=== PATIENT | female | born 1930 | race Caucasian/White ===

== ENCOUNTER 2017-01-13 07:48 | Day surgery (SDC) | payer MEDICARE, BC ==
[~2017-01-13 07:48] MED LIST: PROPOFOL 500 MG/50 ML EMU IV ONE
[2017-01-13 10:52] VITALS: TEMP 97.8
[2017-01-13 11:20] VITALS: BP 171/84; PULSE 78; RESP 20; O2SAT 97
== END 2017-01-13 11:29 | disposition home or self-care (01) | DRG 392 ==
LOC: SURG 07:48
PROVIDERS: ATTEND Surgery
DX: R19.4 Change in bowel habit (principal); K57.30 Diverticulosis of large intestine without perforation or abscess without bleeding; R19.7 Diarrhea, unspecified
CPT/HCPCS: J2704

== ENCOUNTER 2018-04-25 15:29 | Emergency (ER) | payer MEDICARE, BC ==
[2018-04-25 15:42] VITALS: TEMP 98.2
[2018-04-25] MEDS ORDERED: SODIUM CHLORIDE 0.9% 1000 ML SOL IV SCH (16:45)
[2018-04-25 17:12] LABS: BASOPHILS % (AUTO) 0 % (0-3); EOSINOPHILS % (AUTO) 2 % (0-9); HEMATOCRIT 37 % (35-47); HEMOGLOBIN 12.1 gm/dl (12.0-15.5); MEAN CORPUSCULAR HEMOGLOBIN 28.6 pg (27.0-32.0); MEAN CORPUSCULAR HGB CONC 32.7 gm/dl (32.0-36.0); MEAN CORPUSCULAR VOLUME 87 fL (81-99); MONOCYTES % (AUTO) 8.2 % (0-12); NEUTROPHILS % (AUTO) 70.9 % (37-80)
[2018-04-25 17:33] LABS: ALBUMIN 3.3 gm/dl (3.4-5.0); ALKALINE PHOSPHATASE 82 IU/L (46-116); ALT 16 IU/L (14-63); AST 14 IU/L (15-37); BILIRUBIN,TOTAL 0.9 mg/dl (0.2-1.0); BLOOD UREA NITROGEN 22 mg/dl (7-18); CALCIUM 8.8 mg/dl (8.5-10.1); CARBON DIOXIDE 28.6 mEq/L (21-32); CHLORIDE 102 mMol/L (98-107); CREATININE 1.41 mg/dl (0.60-1.00); GLUCOSE 117 mg/dl (74-106); POTASSIUM 4.1 mMol/L (3.5-5.1); SODIUM 138 mMol/L (136-145); TOTAL PROTEIN 6.8 gm/dl (6.4-8.2); TROP I < 0.017 ng/ml (0.000-0.056)
[2018-04-25 19:37] VITALS: PULSE 63; RESP 20; O2SAT 95
[2018-04-25 19:38] VITALS: BP 147/70
== END 2018-04-25 19:27 | disposition home or self-care (01) | DRG 153 ==
LOC: ED 15:29
DX: J06.9 Acute upper respiratory infection, unspecified (principal); E86.0 Dehydration
CPT/HCPCS: 36415; 70450; 71045; 80053; 84484; 85025; 93005; 96365; 99283; 99284

== ENCOUNTER 2018-04-28 18:55 | Emergency (ER) | payer MEDICARE, BC ==
[2018-04-28 22:17] VITALS: BP 158/84; PULSE 72; RESP 20; TEMP 96.6; O2SAT 96
== END 2018-04-28 22:36 | disposition home or self-care (01) | DRG 392 ==
LOC: ED 18:55
DX: K59.00 Constipation, unspecified (principal)
CPT/HCPCS: 99282; 99283

== ENCOUNTER 2018-05-11 21:03 | Emergency (ER) | payer MEDICARE, BC ==
[2018-05-11 21:42] LABS: BASOPHILS % (AUTO) 1 % (0-3); EOSINOPHILS % (AUTO) 5 % (0-9); HEMATOCRIT 35 % (35-47); HEMOGLOBIN 11.6 gm/dl (12.0-15.5); LYMPHOCYTES % (AUTO) 21.1 % (10-50); MEAN CORPUSCULAR HEMOGLOBIN 28.6 pg (27.0-32.0); MEAN CORPUSCULAR VOLUME 87 fL (81-99); MONOCYTES % (AUTO) 11.3 % (0-12); NEUTROPHILS % (AUTO) 60.9 % (37-80)
[2018-05-11 21:49] LABS: CALCIUM 8.6 mg/dl (8.5-10.1); CARBON DIOXIDE 29.8 mEq/L (21-32); CREATININE 1.19 mg/dl (0.60-1.00); POTASSIUM 3.3 mMol/L (3.5-5.1)
[2018-05-12 01:10] VITALS: RESP 18
[2018-05-12 01:12] VITALS: TEMP 97.9
[2018-05-12 01:16] VITALS: BP 162/84; PULSE 76; O2SAT 96
== END 2018-05-11 23:55 | disposition home or self-care (01) | DRG 392 ==
LOC: ED 21:03
DX: K59.00 Constipation, unspecified (principal)
CPT/HCPCS: 36415; 74019; 80048; 85025; 99283; 99284

== ENCOUNTER 2018-05-14 11:17 | Inpatient (IN) | payer MEDICARE, BC ==
[2018-05-14 12:09] LABS: HEMATOCRIT 39 % (35-47); HEMOGLOBIN 12.9 gm/dl (12.0-15.5); MEAN CORPUSCULAR HEMOGLOBIN 28.3 pg (27.0-32.0); MEAN CORPUSCULAR HGB CONC 32.8 gm/dl (32.0-36.0); MEAN CORPUSCULAR VOLUME 86 fL (81-99)
[2018-05-14 12:28] LABS: ALBUMIN 3.8 gm/dl (3.4-5.0); CALCIUM 9.2 mg/dl (8.5-10.1); CARBON DIOXIDE 30.5 mEq/L (21-32); CREATININE 1.13 mg/dl (0.60-1.00); POTASSIUM 3.7 mMol/L (3.5-5.1); TOTAL PROTEIN 7.4 gm/dl (6.4-8.2)
[2018-05-14] MEDS ORDERED: TRAMADOL HYDROCHLORIDE 50 MG TAB PO PRN (12:29)
[2018-05-14 12:37] LABS: BAND NEUTROPHILS % (MANUAL) 4 %; BASOPHILS % (MANUAL) 0 % (0-3); EOSINOPHILS % (MANUAL) 2 % (0-9); LYMPHOCYTES % (MANUAL) 13 % (10-50); MONOCYTES % (MANUAL) 6 % (0-12); NEUTROPHILS % (MANUAL) 75 % (37-80)
[2018-05-14 12:38] LABS: NORMAL RBCS PRESENT
[2018-05-14] MEDS: SODIUM CHLORIDE 0.9% FLUSH 10 ML SOL IV PRN ×2 (12:58→20:09)
[2018-05-14 16:36] LABS: APPEARANCE,URINE Slightly Cloudy; BILIRUBIN,URINE NEGATIVE (NEGATIVE); COLOR,URINE Yellow; GLUCOSE, URINE (UA) NEGATIVE (NEGATIVE); KETONES,URINE NEGATIVE (NEGATIVE); LEUKOCYTE ESTERASE ,URINE 2+ (NEGATIVE); NITRATE,URINE NEGATIVE (NEGATIVE); OCCULT BLOOD,URINE TRACE LYSED (NEG-TRACE); UROBILINOGEN,URINE 0.2 (0.2-1.0 EU)
[2018-05-14 16:58] LABS: BACTERIA TRACE (< 1+); CRYSTALS NEGATIVE (0-3 AVE/HPF); RBC,URINE NEG (0-3AV/HPF)
[2018-05-14] MEDS: CIPROFLOXACIN HCL 500 MG TAB PO SCH (20:09)
[2018-05-14] MEDS: ACETAMINOPHEN 325 MG PO PRN (20:09)
[2018-05-15] MEDS: SODIUM CHLORIDE 0.9% FLUSH 10 ML SOL IV PRN (01:48)
[2018-05-15] MEDS: ACETAMINOPHEN 325 MG PO PRN ×3 (01:48→20:11)
[2018-05-15] MEDS: CIPROFLOXACIN HCL 500 MG TAB PO SCH ×2 (08:50→20:11)
[2018-05-15] MEDS: LOSARTAN POTASSIUM 50 MG TAB PO SCH ×2 (10:51→20:11)
[2018-05-15] MEDS: DOCUSATE SODIUM 100 MG SGL PO SCH ×3 (10:52→20:11)
[2018-05-16] MEDS: SODIUM CHLORIDE 0.9% FLUSH 10 ML SOL IV PRN (01:08)
[2018-05-16] MEDS ORDERED: PANTOPRAZOLE SODIUM 40 MG ECT PO SCH (07:00)
[2018-05-16 08:03] VITALS: BP 169/93; PULSE 77; RESP 18; TEMP 98.2; O2SAT 95
[2018-05-16] MEDS ORDERED: LEVOTHYROXINE SODIUM 50 MCG TAB PO SCH (09:00)
[2018-05-16] MEDS ORDERED: HYDROCHLOROTHIAZIDE 25 MG TAB PO SCH (09:00)
[2018-05-16] MEDS ORDERED: METOPROLOL SUCCINATE 50 MG ER TAB PO SCH (09:00)
[2018-05-16] MEDS ORDERED: HYDROCORTISONE 1% CREAM 1 APPL CRE TOP PRN (09:30)
[2018-05-16] MEDS: DOCUSATE SODIUM 100 MG SGL PO SCH ×2 (09:43→15:30)
[2018-05-16] MEDS: LOSARTAN POTASSIUM 50 MG TAB PO SCH (09:44)
[2018-05-16] MEDS: CIPROFLOXACIN HCL 500 MG TAB PO SCH (09:45)
== END 2018-05-16 16:05 | disposition home or self-care (01) | DRG 392 ==
LOC: ACUTE CARE 11:37
PROVIDERS: ADMIT Family Medicine; ATTEND Family Medicine
DX: R10.84 Generalized abdominal pain (principal); G30.1 Alzheimer's disease with late onset; F02.80 Dementia in other diseases classified elsewhere, unspecified severity, without behavioral disturbance, psychotic disturbance, mood disturbance, and anxiety; I10 Essential (primary) hypertension
CPT/HCPCS: 36415; 80053; 81001; 85007; 85027; 87077; 87088; 87186; A9270-GY

== ENCOUNTER 2018-05-18 18:12 | Inpatient (IN) | payer MEDICARE, BC ==
[2018-05-18] MEDS ORDERED: SODIUM CHLORIDE 0.9% 1000ML 1,000 ML IV ONE (18:38)
[2018-05-18 18:43] LABS: BASOPHILS % (AUTO) 1 % (0-3); EOSINOPHILS % (AUTO) 2 % (0-9); HEMATOCRIT 38 % (35-47); HEMOGLOBIN 12.5 gm/dl (12.0-15.5); LYMPHOCYTES % (AUTO) 20.9 % (10-50); MEAN CORPUSCULAR HEMOGLOBIN 28.6 pg (27.0-32.0); MEAN CORPUSCULAR HGB CONC 33.2 gm/dl (32.0-36.0); MEAN CORPUSCULAR VOLUME 86 fL (81-99); NEUTROPHILS % (AUTO) 64.9 % (37-80)
[2018-05-18 18:59] LABS: ALBUMIN 3.7 gm/dl (3.4-5.0); BILIRUBIN,TOTAL 0.8 mg/dl (0.2-1.0); CARBON DIOXIDE 28.8 mEq/L (21-32); CREATININE 1.64 mg/dl (0.60-1.00); POTASSIUM 3.2 mMol/L (3.5-5.1); TOTAL PROTEIN 7.1 gm/dl (6.4-8.2)
[2018-05-18 19:07] LABS: APPEARANCE,URINE Clear; BILIRUBIN,URINE NEGATIVE (NEGATIVE); COLOR,URINE Yellow; GLUCOSE, URINE (UA) NEGATIVE (NEGATIVE); KETONES,URINE NEGATIVE (NEGATIVE); LEUKOCYTE ESTERASE ,URINE 1+ (NEGATIVE); NITRATE,URINE NEGATIVE (NEGATIVE); OCCULT BLOOD,URINE TRACE LYSED (NEG-TRACE); PH,URINE 5.5; UROBILINOGEN,URINE 0.2 (0.2-1.0 EU)
[2018-05-18 19:13] LABS: RBC,URINE 0-2 (0-3AV/HPF)
[2018-05-18 19:14] LABS: BACTERIA 1+ (< 1+); CRYSTALS NEGATIVE (0-3 AVE/HPF)
[2018-05-18] MEDS: LOSARTAN POTASSIUM 50 MG TAB PO SCH (22:43)
[2018-05-18] MEDS: METOPROLOL SUCCINATE 50 MG ER TAB PO SCH (22:44)
[2018-05-19] MEDS: SODIUM CHLORIDE/KCL 20MEQ 1,000 ML IV SCH ×3 (00:26→08:34)
[2018-05-19] MEDS ORDERED: LEVOTHYROXINE SODIUM 50 MCG TAB PO SCH (07:00)
[2018-05-19 07:20] LABS: BASOPHILS % (AUTO) 1 % (0-3); EOSINOPHILS % (AUTO) 3 % (0-9); HEMATOCRIT 35 % (35-47); HEMOGLOBIN 11.8 gm/dl (12.0-15.5); LYMPHOCYTES % (AUTO) 23.1 % (10-50); MEAN CORPUSCULAR HEMOGLOBIN 28.5 pg (27.0-32.0); MEAN CORPUSCULAR HGB CONC 33.2 gm/dl (32.0-36.0); MEAN CORPUSCULAR VOLUME 86 fL (81-99); MONOCYTES % (AUTO) 9.7 % (0-12)
[2018-05-19 07:21] LABS: CALCIUM 8.4 mg/dl (8.5-10.1); CREATININE 1.08 mg/dl (0.60-1.00); POTASSIUM 3.6 mMol/L (3.5-5.1)
[2018-05-19] MEDS ORDERED: ACETAMINOPHEN 325 MG PO PRN (08:33)
[2018-05-19 08:38] VITALS: BP 149/88; PULSE 84; RESP 18; TEMP 98.2; O2SAT 95
[2018-05-19] MEDS: CIPROFLOXACIN HCL 500 MG TAB PO SCH ×2 (08:39→08:53)
[2018-05-19] MEDS: LOSARTAN POTASSIUM 50 MG TAB PO SCH (08:53)
[2018-05-19] MEDS: METOPROLOL SUCCINATE 50 MG ER TAB PO SCH (08:53)
[2018-05-19] MEDS ORDERED: SODIUM CHLORIDE 0.9% 1000ML 1,000 ML IV SCH (10:15)
== END 2018-05-19 10:40 | disposition short-term general hospital (02) | DRG 440 ==
LOC: ED 18:12 → ACUTE CARE 21:13
PROVIDERS: ADMIT Family Medicine; ATTEND Family Medicine
DX: R10.84 Generalized abdominal pain (principal); K85.90 Acute pancreatitis without necrosis or infection, unspecified; K81.9 Cholecystitis, unspecified; K80.20 Calculus of gallbladder without cholecystitis without obstruction; E87.6 Hypokalemia; G30.1 Alzheimer's disease with late onset; F02.80 Dementia in other diseases classified elsewhere, unspecified severity, without behavioral disturbance, psychotic disturbance, mood disturbance, and anxiety; E86.0 Dehydration
CPT/HCPCS: 36415; 51798; 74019; 80048; 80053; 81001; 82150; 85025; 87088; 96365; 99222; 99283; A9270-GY

== ENCOUNTER 2018-05-27 17:14 | Inpatient (IN) | payer MEDICARE, BC ==
[2018-05-27] MEDS ORDERED: LORAZEPAM 0.5 MG TAB PO PRN (18:01)
[2018-05-27] MEDS ORDERED: ACETAMINOPHEN 325 MG PO PRN (18:01)
[2018-05-27] MEDS ORDERED: LOPERAMIDE HYDROCHLORIDE 2 MG CAP PO PRN (18:01)
[2018-05-27] MEDS: DEXTROSE/SALINE 0.45/KCL 20MEQ 1,000 ML/1,000 ML SOL IV SCH (18:32)
[2018-05-27] MEDS: LOSARTAN POTASSIUM 50 MG TAB PO SCH (20:15)
[2018-05-27] MEDS: CARVEDILOL 12.5 MG TAB PO SCH (20:15)
[2018-05-27] MEDS: SODIUM CHLORIDE 0.9% FLUSH 10 ML SOL IV SCH (22:05)
[2018-05-28] MEDS: DEXTROSE/SALINE 0.45/KCL 20MEQ 1,000 ML/1,000 ML SOL IV SCH (03:27)
[2018-05-28] MEDS: SODIUM CHLORIDE 0.9% FLUSH 10 ML SOL IV SCH (05:48)
[2018-05-28] MEDS ORDERED: LEVOTHYROXINE SODIUM 50 MCG TAB PO SCH (07:00)
[2018-05-28 07:16] LABS: BASOPHILS % (AUTO) 1 % (0-3); EOSINOPHILS % (AUTO) 7 % (0-9); HEMATOCRIT 37 % (35-47); HEMOGLOBIN 11.9 gm/dl (12.0-15.5); LYMPHOCYTES % (AUTO) 19.6 % (10-50); MEAN CORPUSCULAR HEMOGLOBIN 28.1 pg (27.0-32.0); MEAN CORPUSCULAR HGB CONC 32.2 gm/dl (32.0-36.0); MEAN CORPUSCULAR VOLUME 88 fL (81-99); MONOCYTES % (AUTO) 9.6 % (0-12); NEUTROPHILS % (AUTO) 62.9 % (37-80)
[2018-05-28 07:30] VITALS: BP 156/80; PULSE 60; RESP 18; TEMP 97.8; O2SAT 96
[2018-05-28 07:30] LABS: ALBUMIN 3.3 gm/dl (3.4-5.0); CALCIUM 8.8 mg/dl (8.5-10.1); CARBON DIOXIDE 28.5 mEq/L (21-32); CREATININE 1.11 mg/dl (0.60-1.00); POTASSIUM 3.7 mMol/L (3.5-5.1); TOTAL PROTEIN 6.4 gm/dl (6.4-8.2)
[2018-05-28] MEDS ORDERED: HYDROCORTISONE 1% CREAM 1 APPL CRE TOP PRN (08:30)
[2018-05-28] MEDS ORDERED: POTASSIUM CHLORIDE 10 MEQ TER PO SCH (09:00)
[2018-05-28] MEDS ORDERED: OMEPRAZOLE 20 MG CAPSULE PO SCH (09:00)
[2018-05-28] MEDS ORDERED: PANTOPRAZOLE SODIUM 40 MG ECT PO SCH (09:00)
[2018-05-28] MEDS ORDERED: HYDROCHLOROTHIAZIDE 25 MG TAB PO SCH (09:00)
[2018-05-28] MEDS: CARVEDILOL 12.5 MG TAB PO SCH (09:09)
[2018-05-28] MEDS: LOSARTAN POTASSIUM 50 MG TAB PO SCH (09:09)
== END 2018-05-28 13:55 | disposition home or self-care (01) | DRG 392 ==
LOC: ACUTE CARE 17:22
PROVIDERS: ADMIT Family Medicine; ATTEND Family Medicine
DX: R10.9 Unspecified abdominal pain (principal); G30.1 Alzheimer's disease with late onset; F02.80 Dementia in other diseases classified elsewhere, unspecified severity, without behavioral disturbance, psychotic disturbance, mood disturbance, and anxiety; I10 Essential (primary) hypertension; K57.90 Diverticulosis of intestine, part unspecified, without perforation or abscess without bleeding; E03.9 Hypothyroidism, unspecified; Z79.4 Long term (current) use of insulin; K80.80 Other cholelithiasis without obstruction
CPT/HCPCS: 36415; 80053; 85025; A9270-GY

== ENCOUNTER 2018-06-01 10:33 | Emergency (ER) | payer MEDICARE, BC ==
[2018-06-01 13:23] VITALS: TEMP 97.3
[2018-06-01 14:05] VITALS: RESP 18
[2018-06-01 14:06] VITALS: BP 146/80; PULSE 66; O2SAT 93
== END 2018-06-01 13:15 | disposition home or self-care (01) | DRG 605 ==
LOC: ED 10:33
DX: S70.02XA Contusion of left hip, initial encounter (principal); W18.39XA Other fall on same level, initial encounter; I10 Essential (primary) hypertension; E03.9 Hypothyroidism, unspecified
CPT/HCPCS: 73501; 99283

== ENCOUNTER 2018-10-21 13:45 | Emergency (ER) | payer MEDICARE, OTHER ==
[2018-10-21 14:05] VITALS: TEMP 96.5
[2018-10-21 16:36] VITALS: BP 174/88; PULSE 65; RESP 16; O2SAT 95
== END 2018-10-21 16:25 | disposition home or self-care (01) | DRG 563 ==
LOC: ED 13:45
DX: S43.101A Unspecified dislocation of right acromioclavicular joint, initial encounter (principal); W01.0XXA Fall on same level from slipping, tripping and stumbling without subsequent striking against object, initial encounter; S00.83XA Contusion of other part of head, initial encounter; S01.411A Laceration without foreign body of right cheek and temporomandibular area, initial encounter; S61.411A Laceration without foreign body of right hand, initial encounter; R40.2362 Coma scale, best motor response, obeys commands, at arrival to emergency department; R40.2142 Coma scale, eyes open, spontaneous, at arrival to emergency department; R40.2252 Coma scale, best verbal response, oriented, at arrival to emergency department
CPT/HCPCS: 23545; G0168; 73030; 99284; A6402

== ENCOUNTER 2019-02-13 12:54 | Inpatient (IN) | payer MEDICARE, OTHER ==
[2019-02-13] MEDS ORDERED: SODIUM CHLORIDE 0.9% 1000ML 1,000 ML IV ONE (13:18)
[2019-02-13] MEDS ORDERED: CEFTRIAXONE 1 GM PDS 1 GM in SODIUM CHLORIDE 0.9% 50 ML 50 ML IV ONE (13:30)
[2019-02-13] MEDS ORDERED: ACETAMINOPHEN 500 MG 500 MG TAB PO PRN (13:43)
[2019-02-13] MEDS: SODIUM CHLORIDE 0.9% FLUSH 10 ML SOL IV SCH ×2 (14:20→21:33)
[2019-02-13] MEDS ORDERED: POLYETHYLENE GLYCOL 17 GM/1 TBS PDS PO PRN (14:35)
[2019-02-13] MEDS: LEVOFLOXACIN 500 MG TAB PO SCH (16:02)
[2019-02-13] MEDS: GABAPENTIN 100 MG CAP PO SCH ×2 (16:03→21:33)
[2019-02-13] MEDS: DEXTROSE/SALINE 0.45/KCL 20MEQ 1,000 ML/1,000 ML SOL IV SCH ×2 (16:36→23:25)
[2019-02-13] MEDS ORDERED: DONEPEZIL 10 MG TAB PO SCH (21:00)
[2019-02-13] MEDS: CARVEDILOL 12.5 MG TAB PO SCH (21:33)
[2019-02-13] MEDS: LOSARTAN POTASSIUM 50 MG TAB PO SCH (21:33)
[2019-02-14 01:38] VITALS: O2SAT 97
[2019-02-14] MEDS: SODIUM CHLORIDE 0.9% FLUSH 10 ML SOL IV SCH ×2 (05:04→15:19)
[2019-02-14] MEDS: DEXTROSE/SALINE 0.45/KCL 20MEQ 1,000 ML/1,000 ML SOL IV SCH ×2 (06:24→15:20)
[2019-02-14] MEDS ORDERED: LEVOTHYROXINE SODIUM 50 MCG TAB PO SCH (07:00)
[2019-02-14 08:02] LABS: CARBON DIOXIDE 24.6 mEq/L (21-32); CREATININE 1.29 mg/dl (0.60-1.00)
[2019-02-14 08:07] LABS: HEMATOCRIT 33 % (35-47); HEMOGLOBIN 10.8 gm/dl (12.0-15.5); MEAN CORPUSCULAR HEMOGLOBIN 29.7 pg (27.0-32.0); MEAN CORPUSCULAR VOLUME 90 fL (81-99)
[2019-02-14] MEDS: LOSARTAN POTASSIUM 50 MG TAB PO SCH (08:55)
[2019-02-14] MEDS: CARVEDILOL 12.5 MG TAB PO SCH (08:55)
[2019-02-14 08:57] VITALS: BP 162/86; PULSE 70; RESP 14; TEMP 98.6
[2019-02-14 08:57] LABS: BAND NEUTROPHILS % (MANUAL) 2 %; BASOPHILS % (MANUAL) 0 % (0-3); EOSINOPHILS % (MANUAL) 7 % (0-9); LYMPHOCYTES % (MANUAL) 32 % (10-50); MONOCYTES % (MANUAL) 8 % (0-12); NEUTROPHILS % (MANUAL) 51 % (37-80)
[2019-02-14 08:58] LABS: NORMAL RBCS PRESENT
[2019-02-14] MEDS ORDERED: PANTOPRAZOLE SODIUM 40 MG ECT PO SCH (09:00)
[2019-02-14] MEDS ORDERED: POTASSIUM CHLORIDE 10 MEQ TER PO SCH (09:00)
[2019-02-14] MEDS ORDERED: OMEPRAZOLE 20 MG CAPSULE PO SCH (09:00)
[2019-02-14] MEDS: GABAPENTIN 100 MG CAP PO SCH ×2 (09:02→15:23)
[2019-02-14] MEDS: LEVOFLOXACIN 500 MG TAB PO SCH (15:23)
== END 2019-02-14 16:30 | disposition home or self-care (01) | DRG 641 ==
LOC: ACUTE CARE 12:55
PROVIDERS: ADMIT Family Medicine; ATTEND Family Medicine
PROC: F01ZBZZ Bed Mobility Assessment (ICD-10-PCS; principal; 2019-02-14)
PROC: F01ZCZZ Transfer Assessment (ICD-10-PCS; 2019-02-14)
PROC: F01K0ZZ Muscle Performance Assessment of Musculoskeletal System - Upper Back / Upper Extremity (ICD-10-PCS; 2019-02-14)
PROC: F01K5YZ Range of Motion and Joint Integrity Assessment of Musculoskeletal System - Upper Back / Upper Extremity using Other Equipment (ICD-10-PCS; 2019-02-14)
DX: E86.0 Dehydration (principal); N30.00 Acute cystitis without hematuria; C50.912 Malignant neoplasm of unspecified site of left female breast; R53.1 Weakness; G30.1 Alzheimer's disease with late onset; F02.80 Dementia in other diseases classified elsewhere, unspecified severity, without behavioral disturbance, psychotic disturbance, mood disturbance, and anxiety; E11.9 Type 2 diabetes mellitus without complications; I10 Essential (primary) hypertension; R42 Dizziness and giddiness
CPT/HCPCS: 36415; 76882; 80048; 82962; 85007; 85027; A9270-GY